=== PATIENT | female | born 1935 | race Caucasian/White ===

== ENCOUNTER 2017-06-25 06:59 | Day surgery (SDC) | payer MEDICARE, OTHER ==
[~2017-06-25] VITALS: Ht 160 cm; Wt 93.1 kg
[~2017-06-25 06:59] MED LIST: COD LIVER OIL1 EACH PO; DILT120 PO; LOSA25 PO; LOSA50 PO; Mirapex0.5 MG PO; NYSTRITC TOP; Omeprazole20 M1; Omeprazole20 M1 PO; PRAM.5 PO; PREMARIN VAG; TOLT2 PO; VITA25000 PO; VITAMIN D32000 UNIT PO; Vesicare10 MG PO
[2017-06-25] MEDS ORDERED: CLOP75 PO (07:55)
[2017-06-25] MEDS ORDERED: ASPI81CH PO (07:56)
[2017-10-04] MEDS ORDERED: BENZ100A PO (00:24)
== END 2017-06-25 09:13 | disposition home or self-care (01) ==
LOC: ORSCSDS 06:59
PROVIDERS: Ophthalmology
PROC: 08RK3JZ Replacement of Left Lens with Synthetic Substitute, Percutaneous Approach (ICD-10-PCS; principal; 2017-06-25 08:30)
DX: H25.12 Age-related nuclear cataract, left eye (principal); I10 Essential (primary) hypertension; J44.9 Chronic obstructive pulmonary disease, unspecified; J45.909 Unspecified asthma, uncomplicated; E66.01 Morbid (severe) obesity due to excess calories; Z68.36 Body mass index [BMI] 36.0-36.9, adult; F17.210 Nicotine dependence, cigarettes, uncomplicated; Z79.899 Other long term (current) drug therapy
CPT/HCPCS: J2250; J3301; J7040; V2632

== ENCOUNTER → 2017-07-17 | Outpatient (CLI) | payer MEDICARE, OTHER ==
[~2017-07-17] MED LIST changes: +ASPI81CH PO; +BENZ100A PO; +CLOP75 PO
== END ==
LOC: LAB 13:43
DX: N39.46 Mixed incontinence (principal)
CPT/HCPCS: 87086

== ENCOUNTER → 2017-09-18 | Outpatient (CLI) | payer MEDICARE, OTHER ==
[~2017-09-18] MED LIST changes: -BENZ100A PO
== END ==
LOC: PLD 13:50 → LAB SHORT 13:50
DX: L72.3 Sebaceous cyst (principal)
CPT/HCPCS: 88304

== ENCOUNTER → 2020-07-24 | Outpatient (CLI) | payer MEDICARE, OTHER ==
[~2020-07-24] MED LIST changes: +BENZ100A PO
[2020-07-24 16:47] LABS: BASOPHILS ABSOLUTE AUTO 0.04 K/mm3 (0.00-0.23); BASOPHILS PERCENT AUTO 1 % (0-2); EOSINOPHILS ABSOLUTE AUTO 0.17 K/mm3 (0.00-0.68); EOSINOPHILS PERCENT AUTO 2 % (0-6); Hematocrit 36.2 % (33.0-51.0); Hemoglobin 11.2 g/dL (11.5-16.0); IMMATURE GRAN ABSOLUTE AUTO 0.02 K/mm3 (0.00-0.10); IMMATURE GRAN PERCENT AUTO 0 % (0-1); LYMPHOCYTES ABSOLUTE AUTO 1.92 K/mm3 (0.84-5.20); LYMPHOCYTES PERCENT AUTO 25 % (21-46); MONOCYTES ABSOLUTE AUTO 0.63 K/mm3 (0.16-1.47); MONOCYTES PERCENT AUTO 8 % (4-13); Mean Corpuscular HGB 28.9 pg (26.0-34.0); Mean Corpuscular HGB Conc 30.9 g/dL (31.5-36.5); Mean Corpuscular Volume 94 fL (80-100); Mean Platelet Volume 9.8 fL (9.1-12.4); NEUTROPHILS ABSOLUTE AUTO 4.87 K/mm3 (1.96-9.15); NEUTROPHILS PERCENT AUTO 64 % (41-73); Platelet Count 286 K/mm3 (150-400); Red Blood Cell Count 3.87 M/mm3 (3.80-5.20); White Blood Cell Count 7.65 K/mm3 (4.00-11.30)
[2020-07-24 17:46] LABS: Bun/Creatinine Ratio 15.5 (12.0-20.0); Creatinine, Blood 1.1 mg/dL (0.40-1.00); Potassium, Blood 4.2 mmol/L (3.5-5.5)
== END | disposition home or self-care (01) ==
LOC: LAB SHORT 16:42 → PLD 16:42
PROVIDERS: Family Medicine
DX: I10 Essential (primary) hypertension (principal)
CPT/HCPCS: 80048; 83880; 85025

== ENCOUNTER 2020-10-21 13:37 | Emergency (ER) | payer MEDICARE, OTHER ==
[~2020-10-21] VITALS: Ht 162.6 cm; Wt 96.2 kg
== END 2020-10-21 15:57 | disposition home or self-care (01) ==
LOC: ER 13:37
DX: S81.812A Laceration without foreign body, left lower leg, initial encounter (principal); J44.9 Chronic obstructive pulmonary disease, unspecified; M79.662 Pain in left lower leg; Z88.2 Allergy status to sulfonamides; Z88.1 Allergy status to other antibiotic agents; Z88.8 Allergy status to other drugs, medicaments and biological substances; Z79.899 Other long term (current) drug therapy; Z87.891 Personal history of nicotine dependence; W45.8XXA Other foreign body or object entering through skin, initial encounter
CPT/HCPCS: 71046; 80053; 82550; 84484; 85025; 85379; 85651; 93971; 99284-25

== ENCOUNTER → 2022-04-23 | Outpatient (CLI) | payer MEDICARE, OTHER | LOC: LAB SHORT 12:05 → PLD 12:05 | DX: L57.0 Actinic keratosis (principal) | CPT/HCPCS: 88305 ==

== ENCOUNTER → 2022-04-30 | Outpatient (CLI) | payer MEDICARE, OTHER | LOC: LAB SHORT 12:47 → PLD 12:47 | DX: D48.5 Neoplasm of uncertain behavior of skin (principal) | CPT/HCPCS: 88305 ==

== ENCOUNTER → 2022-11-13 | Outpatient (CLI) | payer MEDICARE, OTHER | END | disposition home or self-care (01) | LOC: LAB 12:40 → LAB SHORT 12:40 | DX: L01.01 Non-bullous impetigo (principal) | CPT/HCPCS: 87070; 87077; 87186; 87205 ==

== ENCOUNTER → 2023-03-27 | Outpatient (CLI) | payer MEDICARE, OTHER ==
[2023-03-27 16:57] LABS: Protein, Urine Quantitative 7.9 mg/dL (0.0-11.9)
[2023-03-27 17:04] LABS: Microalbumin, Urine Quant. <5.000 mg/L (0.000-20.000)
== END ==
LOC: LAB 07:30 → LAB SHORT 07:30
PROVIDERS: Internal Medicine Nephrology
DX: N18.30 Chronic kidney disease, stage 3 unspecified (principal); D63.1 Anemia in chronic kidney disease; D52.8 Other folate deficiency anemias; D50.9 Iron deficiency anemia, unspecified; E55.9 Vitamin D deficiency, unspecified; N25.81 Secondary hyperparathyroidism of renal origin; E78.00 Pure hypercholesterolemia, unspecified; R76.9 Abnormal immunological finding in serum, unspecified; R94.5 Abnormal results of liver function studies; R94.6 Abnormal results of thyroid function studies; D51.8 Other vitamin B12 deficiency anemias
CPT/HCPCS: 81050; 82043; 82570; 84156

== ENCOUNTER 2023-11-27 05:55 | Inpatient (IN) | payer MEDICARE, OTHER ==
[~2023-11-27] VITALS: Ht 162.6 cm; Wt 100.7 kg
[2023-11-27] VITALS (7 sets, daily range): BP systolic 95–164; BP diastolic 59–140
[~2023-11-27 05:55] MED LIST changes: +PRAM.125 PO
[2023-11-27] MEDS ORDERED: Diltiazem HCl 5 MG / ML 5ML Vial IV ONE (06:15)
[2023-11-27 06:26] LABS: BASOPHILS ABSOLUTE AUTO 0.05 K/mm3 (0.00-0.23); BASOPHILS PERCENT AUTO 1 % (0-2); EOSINOPHILS ABSOLUTE AUTO 0.42 K/mm3 (0.00-0.68); EOSINOPHILS PERCENT AUTO 5 % (0-6); Hematocrit 40.9 % (33.0-51.0); Hemoglobin 13.4 g/dL (11.5-16.0); IMMATURE GRAN ABSOLUTE AUTO 0.02 K/mm3 (0.00-0.10); IMMATURE GRAN PERCENT AUTO 0 % (0-1); LYMPHOCYTES ABSOLUTE AUTO 3.53 K/mm3 (0.84-5.20); LYMPHOCYTES PERCENT AUTO 39 % (21-46); MONOCYTES ABSOLUTE AUTO 1.03 K/mm3 (0.16-1.47); MONOCYTES PERCENT AUTO 11 % (4-13); Mean Corpuscular HGB 31.6 pg (26.0-34.0); Mean Corpuscular HGB Conc 32.8 g/dL (31.5-36.5); Mean Corpuscular Volume 97 fL (80-100); Mean Platelet Volume 9.5 fL (9.1-12.4); NEUTROPHILS ABSOLUTE AUTO 3.95 K/mm3 (1.96-9.15); NEUTROPHILS PERCENT AUTO 44 % (41-73); Platelet Count 284 K/mm3 (150-400); RDW Coefficient Variation 13.1 % (11.7-14.2); RDW Standard Deviation 46.4 fL (35.1-46.3); Red Blood Cell Count 4.24 M/mm3 (3.80-5.20)
[2023-11-27] MEDS ORDERED: CALASOOTHE 0.4113 GM TP (06:39)
[2023-11-27] MEDS ORDERED: ZOLOFT50 MG PO (06:39)
[2023-11-27] MEDS ORDERED: IRBESARTAN75 M3 PO (06:39)
[2023-11-27] MEDS ORDERED: NYSTOP15 GM TOP (06:39)
[2023-11-27] MEDS ORDERED: HYDCHL25 PO (06:40)
[2023-11-27] MEDS ORDERED: Lovastatin10 MG PO (06:40)
[2023-11-27] MEDS ORDERED: Metoprolol Tartrate 1 MG/ML 5 ML VIAL IV ONE ×2 (06:45→13:50)
[2023-11-27 06:54] LABS: Albumin, Blood 3.5 g/dL (3.4-5.0); Albumin/Globulin Ratio 0.7 (0.8-1.8); Bilirubin, Total 0.4 mg/dL (0.1-1.0); Calcium, Blood 9.9 mg/dL (8.5-10.1); Creatinine, Blood 1.21 mg/dL (0.40-1.00); Globulin, Blood 4.9 g/dL (2.2-4.0); Potassium, Blood 3.7 mmol/L (3.5-5.5); Total Protein, Blood 8.4 g/dL (6.4-8.2)
[2023-11-27 07:33] LABS: Influenza A, PCR NEGATIVE (NEGATIVE); Influenza B, PCR NEGATIVE (NEGATIVE); Resp Syncytial Virus, PCR NEGATIVE (NEGATIVE); SARS-Cov-2 (COVID-19) PCR, MMC NEGATIVE (NEGATIVE)
[2023-11-27] MEDS ORDERED: Furosemide 10 MG / ML 2ML Vial IV ONE (08:15)
[2023-11-27] MEDS ORDERED: Acetaminophen 325 MG TABLET PO PRN (08:25)
[2023-11-27] MEDS ORDERED: Ondansetron HCl 2 MG / ML 2ML Vial IV PRN (08:30)
[2023-11-27] MEDS ORDERED: Omeprazole 20 MG CapCR PO SCH (09:00)
[2023-11-27] MEDS ORDERED: Sertraline HCl 50 MG Tab PO SCH (09:00)
[2023-11-27] MEDS ORDERED: Docusate Sodium 100 MG Cap PO SCH (09:00)
[2023-11-27] MEDS ORDERED: Cholecalciferol 1000 Unit Tablet (=25MCG) PO SCH (09:00)
[2023-11-27] MEDS ORDERED: Bisacodyl 10 MG Supp PR PRN (09:00)
[2023-11-27] MEDS ORDERED: Furosemide 10 MG/ML 4ML Vial IV SCH (09:00)
[2023-11-27] MEDS ORDERED: Aspirin 81 MG Chew PO SCH (09:00)
[2023-11-27] MEDS ORDERED: Sennosides 8.6 MG Tab PO SCH (09:00)
[2023-11-27] MEDS ORDERED: Nystatin 100,000 Unit/GM CREAM 15 GM TOP SCH (09:00)
[2023-11-27] MEDS ORDERED: Magnesium Hydroxide Conc 10 ML UDC PO PRN (09:05)
[2023-11-27] MEDS ORDERED: TraMADol HCl 50 MG Tab PO PRN (13:15)
[2023-11-27] MEDS ORDERED: Metoprolol Tartrate 5 ML IV ONE (13:46)
[2023-11-27] MEDS ORDERED: Gabapentin 100 MG Cap PO SCH (14:00)
[2023-11-27] MEDS ORDERED: Amiodarone HCl 200 MG Tab PO SCH (16:00)
[2023-11-27] MEDS ORDERED: Atorvastatin 10 MG Tab PO SCH ×2 (21:00)
[2023-11-27] MEDS ORDERED: Pramipexole DI-HCL 0.25 MG Tab PO SCH (21:00)
[2023-11-28 03:55] VITALS: BP 118/67
[2023-11-28 05:25] LABS: BASOPHILS ABSOLUTE AUTO 0.07 K/mm3 (0.00-0.23); BASOPHILS PERCENT AUTO 1 % (0-2); EOSINOPHILS ABSOLUTE AUTO 0.36 K/mm3 (0.00-0.68); EOSINOPHILS PERCENT AUTO 6 % (0-6); Hematocrit 33.8 % (33.0-51.0); IMMATURE GRAN ABSOLUTE AUTO 0.01 K/mm3 (0.00-0.10); IMMATURE GRAN PERCENT AUTO 0 % (0-1); LYMPHOCYTES ABSOLUTE AUTO 1.76 K/mm3 (0.84-5.20); LYMPHOCYTES PERCENT AUTO 27 % (21-46); MONOCYTES ABSOLUTE AUTO 0.65 K/mm3 (0.16-1.47); MONOCYTES PERCENT AUTO 10 % (4-13); Mean Corpuscular HGB 31.4 pg (26.0-34.0); Mean Corpuscular HGB Conc 32.5 g/dL (31.5-36.5); Mean Corpuscular Volume 97 fL (80-100); Mean Platelet Volume 9.8 fL (9.1-12.4); NEUTROPHILS ABSOLUTE AUTO 3.64 K/mm3 (1.96-9.15); NEUTROPHILS PERCENT AUTO 56 % (41-73); Platelet Count 255 K/mm3 (150-400); RDW Standard Deviation 46.5 fL (35.1-46.3); White Blood Cell Count 6.49 K/mm3 (4.00-11.30)
[2023-11-28 05:48] LABS: Albumin, Blood 2.9 g/dL (3.4-5.0); Anion Gap 8 mmol/L (3-11); Blood Urea Nitrogen 39 mg/dL (8-24); Bun/Creatinine Ratio 26.2 (12.0-20.0); CO2, Blood 30 mmol/L (21-32); Calcium, Blood 8.9 mg/dL (8.5-10.1); Chloride, Blood 109 mmol/L (98-108); Creatinine, Blood 1.49 mg/dL (0.40-1.00); Glomerular Filtration Rate 34 (60-); Glucose, Blood 117 mg/dL (70-99); Phosphorus, Blood 4.1 mg/dL (2.5-4.9); Potassium, Blood 3.6 mmol/L (3.5-5.5); Sodium, Blood 143 mmol/L (136-145)
[2023-11-28 07:20] VITALS: BP 116/55
[2023-11-28] MEDS ORDERED: Enoxaparin 40 MG/0.4 ML SYR SC SCH (09:00)
[2023-11-28 11:50] VITALS: BP 126/61
[2023-11-28 15:14] VITALS: BP 130/69
[2023-11-28 19:56] VITALS: BP 121/50
[2023-11-28] MEDS ORDERED: Amiodarone HCl 200 MG Tab PO SCH (21:00)
[2023-11-28] MEDS ORDERED: Metoprolol Tartrate 25 MG Tab PO SCH (21:00)
[2023-11-29 00:04] VITALS: BP 124/79
[2023-11-29 03:55] VITALS: BP 116/65
[2023-11-29 04:31] LABS: Hematocrit 37.1 % (33.0-51.0)
[2023-11-29 04:51] LABS: Albumin, Blood 3.1 g/dL (3.4-5.0); Anion Gap 6 mmol/L (3-11); Blood Urea Nitrogen 41 mg/dL (8-24); Bun/Creatinine Ratio 27.2 (12.0-20.0); CO2, Blood 30 mmol/L (21-32); Calcium, Blood 8.8 mg/dL (8.5-10.1); Chloride, Blood 109 mmol/L (98-108); Creatinine, Blood 1.51 mg/dL (0.40-1.00); Glomerular Filtration Rate 33 (60-); Glucose, Blood 98 mg/dL (70-99); Magnesium, Blood 2.3 mg/dL (1.6-2.4); Phosphorus, Blood 4.2 mg/dL (2.5-4.9); Sodium, Blood 141 mmol/L (136-145)
[2023-11-29 07:22] VITALS: BP 137/54
[2023-11-29 11:19] VITALS: BP 117/54
[2023-11-29] MEDS ORDERED: BISA10S PR (11:31)
[2023-11-29] MEDS ORDERED: DOCU100 PO (11:32)
[2023-11-29] MEDS ORDERED: METO25 PO (11:33)
[2023-11-29] MEDS ORDERED: SENN187 PO (11:34)
[2023-11-29] MEDS ORDERED: FURO40 PO (11:35)
== END 2023-11-29 12:50 | disposition home or self-care (01) | DRG 291 ==
LOC: ER 05:55 → ERHOLD 08:28 → PCU 08:28
PROVIDERS: Emergency Medicine; ADMIT Internal Medicine
DX: I13.0 Hypertensive heart and chronic kidney disease with heart failure and stage 1 through stage 4 chronic kidney disease, or unspecified chronic kidney disease (principal); I50.31 Acute diastolic (congestive) heart failure; I47.10 Supraventricular tachycardia, unspecified; I48.0 Paroxysmal atrial fibrillation; Z66 Do not resuscitate; E78.5 Hyperlipidemia, unspecified; G25.81 Restless legs syndrome; M19.90 Unspecified osteoarthritis, unspecified site; J44.9 Chronic obstructive pulmonary disease, unspecified; N18.30 Chronic kidney disease, stage 3 unspecified; K59.09 Other constipation; R94.31 Abnormal electrocardiogram [ECG] [EKG]; Z79.82 Long term (current) use of aspirin; Z79.899 Other long term (current) drug therapy; Z95.3 Presence of xenogenic heart valve; Z86.19 Personal history of other infectious and parasitic diseases
CPT/HCPCS: 0241U; 36415; 71045; 80053; 80069; 83735; 83880; 84443; 84484; 85014; 85018; 85025; 93005; 93010; 93306; 94760; 96365-59; 96375-59; 99285-25; A9270; J0282; J1650; J1940; J7060

== ENCOUNTER 2023-12-21 23:12 | Emergency (ER) | payer MEDICARE, OTHER ==
[~2023-12-21] VITALS: Ht 167.6 cm; Wt 90.7 kg
[~2023-12-21 23:12] MED LIST changes: +BISA10S PR; +CALASOOTHE 0.4113 GM TP; +DOCU100 PO; +FURO40 PO; +HYDCHL25 PO; +IRBESARTAN75 M3 PO; +Lovastatin10 MG PO; +METO25 PO; +NYSTOP15 GM TOP; +SENN187 PO; +ZOLOFT50 MG PO
[2023-12-22 00:06] LABS: BASOPHILS ABSOLUTE AUTO 0.04 K/mm3 (0.00-0.23); BASOPHILS PERCENT AUTO 1 % (0-2); EOSINOPHILS ABSOLUTE AUTO 0.71 K/mm3 (0.00-0.68); EOSINOPHILS PERCENT AUTO 9 % (0-6); Hematocrit 36.6 % (33.0-51.0); Hemoglobin 11.7 g/dL (11.5-16.0); IMMATURE GRAN ABSOLUTE AUTO 0.02 K/mm3 (0.00-0.10); IMMATURE GRAN PERCENT AUTO 0 % (0-1); LYMPHOCYTES ABSOLUTE AUTO 2.09 K/mm3 (0.84-5.20); LYMPHOCYTES PERCENT AUTO 26 % (21-46); MONOCYTES ABSOLUTE AUTO 0.64 K/mm3 (0.16-1.47); MONOCYTES PERCENT AUTO 8 % (4-13); Mean Corpuscular HGB 30.9 pg (26.0-34.0); Mean Corpuscular Volume 97 fL (80-100); Mean Platelet Volume 9.3 fL (9.1-12.4); NEUTROPHILS ABSOLUTE AUTO 4.45 K/mm3 (1.96-9.15); NEUTROPHILS PERCENT AUTO 56 % (41-73); Platelet Count 297 K/mm3 (150-400); RDW Coefficient Variation 12.4 % (11.7-14.2); RDW Standard Deviation 43.5 fL (35.1-46.3); Red Blood Cell Count 3.79 M/mm3 (3.80-5.20); White Blood Cell Count 7.95 K/mm3 (4.00-11.30)
[2023-12-22 00:18] LABS: Albumin/Globulin Ratio 0.7 (0.8-1.8); Bilirubin, Total 0.3 mg/dL (0.1-1.0); Bun/Creatinine Ratio 12.1 (12.0-20.0); Calcium, Blood 8.3 mg/dL (8.5-10.1); Creatinine, Blood 1.07 mg/dL (0.40-1.00); Globulin, Blood 4.3 g/dL (2.2-4.0); Potassium, Blood 4.1 mmol/L (3.5-5.5); Total Protein, Blood 7.3 g/dL (6.4-8.2)
[2023-12-22 00:29] LABS: Base Excess Venous 4.4 mmol/L; Bicarbonate Venous 27.5 mmol/L (24.0-30.0); PCO2 Venous 45.6 mmHg (38-42); pH Blood Venous 7.41 (7.34-7.37)
[2023-12-22 00:44] LABS: Influenza A, PCR NEGATIVE (NEGATIVE); Influenza B, PCR NEGATIVE (NEGATIVE); Resp Syncytial Virus, PCR NEGATIVE (NEGATIVE); SARS-Cov-2 (COVID-19) PCR, MMC NEGATIVE (NEGATIVE)
[2023-12-22 01:30] VITALS: BP 126/52
== END 2023-12-22 04:34 | disposition home or self-care (01) ==
LOC: ER 23:12
PROVIDERS: Emergency Medicine
DX: R06.02 Shortness of breath (principal); I10 Essential (primary) hypertension; J44.9 Chronic obstructive pulmonary disease, unspecified; E78.5 Hyperlipidemia, unspecified; Z79.899 Other long term (current) drug therapy; Z79.82 Long term (current) use of aspirin; Z88.2 Allergy status to sulfonamides; Z88.1 Allergy status to other antibiotic agents; Z88.8 Allergy status to other drugs, medicaments and biological substances
CPT/HCPCS: 0241U; 71045; 80053; 82803; 83880; 84484; 85025; 93005; 93010

== ENCOUNTER 2023-12-24 20:24 | Inpatient (IN) | payer MEDICARE, OTHER ==
[~2023-12-24] VITALS: Ht 162.6 cm; Wt 90.7 kg
[~2023-12-24 20:24] MED LIST changes: +CALASOOTHE 0.4113 GM TOP; -CALASOOTHE 0.4113 GM TP; +OMEP20ER PO; -Omeprazole20 M1; -PRAM.125 PO; +PRAMIPEXOLE DIHY1 MG PO; +THERA-D2000 UNIT PO; -VITAMIN D32000 UNIT PO
[2023-12-24 21:02] LABS: BASOPHILS ABSOLUTE AUTO 0.05 K/mm3 (0.00-0.23); BASOPHILS PERCENT AUTO 0 % (0-2); EOSINOPHILS ABSOLUTE AUTO 0.32 K/mm3 (0.00-0.68); EOSINOPHILS PERCENT AUTO 3 % (0-6); Hematocrit 38.3 % (33.0-51.0); Hemoglobin 12.6 g/dL (11.5-16.0); IMMATURE GRAN ABSOLUTE AUTO 0.04 K/mm3 (0.00-0.10); IMMATURE GRAN PERCENT AUTO 0 % (0-1); LYMPHOCYTES ABSOLUTE AUTO 1.68 K/mm3 (0.84-5.20); LYMPHOCYTES PERCENT AUTO 14 % (21-46); MONOCYTES ABSOLUTE AUTO 0.87 K/mm3 (0.16-1.47); MONOCYTES PERCENT AUTO 7 % (4-13); Mean Corpuscular HGB 31.5 pg (26.0-34.0); Mean Corpuscular HGB Conc 32.9 g/dL (31.5-36.5); Mean Corpuscular Volume 96 fL (80-100); Mean Platelet Volume 9.5 fL (9.1-12.4); NEUTROPHILS ABSOLUTE AUTO 8.77 K/mm3 (1.96-9.15); NEUTROPHILS PERCENT AUTO 75 % (41-73); Platelet Count 292 K/mm3 (150-400); RDW Coefficient Variation 12.3 % (11.7-14.2); RDW Standard Deviation 42.9 fL (35.1-46.3); White Blood Cell Count 11.73 K/mm3 (4.00-11.30)
[2023-12-24 21:25] LABS: Albumin, Blood 3.2 g/dL (3.4-5.0); Albumin/Globulin Ratio 0.7 (0.8-1.8); Bilirubin, Total 0.5 mg/dL (0.1-1.0); Bun/Creatinine Ratio 12.9 (12.0-20.0); Calcium, Blood 8.7 mg/dL (8.5-10.1); Creatinine, Blood 1.01 mg/dL (0.40-1.00); Globulin, Blood 4.9 g/dL (2.2-4.0); Potassium, Blood 4.6 mmol/L (3.5-5.5); Total Protein, Blood 8.1 g/dL (6.4-8.2)
[2023-12-24] MEDS ORDERED: Furosemide 10 MG/ML 10ML Vial IV ONE (21:45)
[2023-12-24] MEDS ORDERED: Ondansetron HCl 2 MG / ML 2ML Vial IV PRN (22:10)
[2023-12-24 22:48] LABS: Influenza A, PCR NEGATIVE (NEGATIVE); Influenza B, PCR NEGATIVE (NEGATIVE); Resp Syncytial Virus, PCR NEGATIVE (NEGATIVE)
[2023-12-24] MEDS ORDERED: Enoxaparin 40 MG/0.4 ML SYR SC SCH (23:00)
[2023-12-24 23:48] LABS: SARS-Cov-2 (COVID-19) PCR, MMC POSITIVE (NEGATIVE)
[2023-12-25] MEDS ORDERED: Remdesivir (EUA) 200 MG in NS 250 ML IV ONE (03:00)
[2023-12-25] MEDS ORDERED: Dexamethasone Sod Phos 10 MG/ML 1ML VIAL IV SCH (03:00)
--- NOTE | 2023-12-25 04:27 | NUR ---
SHIFT SUMMARY: Pt is admitted for acute on chronic CHF and is a DNR. is alert and able to make needs known. ADLs have been 1p since coming to the floor about 2340. But did not get out of bed. Is on ISO for covid. Denies pain or discomfort. Rodrigo reports sinus in the 80s with PVCs. has stated that she does not have covid and wants a 2nd opinion. Also stated that she was thinking about going AMA in the AM and going to the [facility] for treatment. When offered treatment for covid and breathing she declined and stating that she does not have covid.
[2023-12-25 05:40] LABS: Albumin, Blood 3.2 g/dL (3.4-5.0); Albumin/Globulin Ratio 0.7 (0.8-1.8); Bilirubin, Total 0.7 mg/dL (0.1-1.0); Bun/Creatinine Ratio 13.6 (12.0-20.0); Calcium, Blood 8.6 mg/dL (8.5-10.1); Creatinine, Blood 1.03 mg/dL (0.40-1.00); Globulin, Blood 4.8 g/dL (2.2-4.0)
[2023-12-25 06:03] VITALS: BP 132/35
[2023-12-25] MEDS ORDERED: Bisacodyl 10 MG Supp PR PRN (06:25)
[2023-12-25 07:15] LABS: BASOPHILS ABSOLUTE AUTO 0.03 K/mm3 (0.00-0.23); BASOPHILS PERCENT AUTO 0 % (0-2); EOSINOPHILS ABSOLUTE AUTO 0.08 K/mm3 (0.00-0.68); EOSINOPHILS PERCENT AUTO 1 % (0-6); Hemoglobin 12.8 g/dL (11.5-16.0); IMMATURE GRAN ABSOLUTE AUTO 0.03 K/mm3 (0.00-0.10); IMMATURE GRAN PERCENT AUTO 0 % (0-1); LYMPHOCYTES ABSOLUTE AUTO 1.49 K/mm3 (0.84-5.20); LYMPHOCYTES PERCENT AUTO 15 % (21-46); MONOCYTES ABSOLUTE AUTO 0.88 K/mm3 (0.16-1.47); MONOCYTES PERCENT AUTO 9 % (4-13); Mean Corpuscular HGB 30.7 pg (26.0-34.0); Mean Corpuscular Volume 96 fL (80-100); Mean Platelet Volume 9.5 fL (9.1-12.4); NEUTROPHILS ABSOLUTE AUTO 7.67 K/mm3 (1.96-9.15); NEUTROPHILS PERCENT AUTO 75 % (41-73); Platelet Count 287 K/mm3 (150-400); RDW Coefficient Variation 12.4 % (11.7-14.2); RDW Standard Deviation 43.6 fL (35.1-46.3); Red Blood Cell Count 4.17 M/mm3 (3.80-5.20); White Blood Cell Count 10.18 K/mm3 (4.00-11.30)
[2023-12-25 07:21] VITALS: BP 138/58
[2023-12-25] MEDS ORDERED: Docusate Sodium 100 MG Cap PO SCH (09:00)
[2023-12-25] MEDS ORDERED: Metoprolol Tartrate 25 MG Tab PO SCH (09:00)
[2023-12-25] MEDS ORDERED: Sertraline HCl 50 MG Tab PO SCH (09:00)
[2023-12-25] MEDS ORDERED: Furosemide 10 MG/ML 4ML Vial IV SCH (09:00)
[2023-12-25] MEDS ORDERED: Aspirin 81 MG Chew PO SCH (09:00)
[2023-12-25] MEDS ORDERED: Misc. Topical TOP SCH (09:00)
[2023-12-25] MEDS ORDERED: Sennosides 8.6 MG Tab PO SCH (09:00)
[2023-12-25] MEDS ORDERED: PRED20 PO (14:02)
[2023-12-25] MEDS ORDERED: ALBU90OI INH (14:02)
--- NOTE | 2023-12-25 15:11 | NUR ---
PT DISCHARGED 1415 WITH DC INSTRUCTIONS, WHEELCHAIR OUT TO PRIVATE CAR, TRICIA WILL DRIVE PT HOME. PT WORE MASK IN [place] FOR COVID PROTOCOL. BELONGINGS SENT HOME INCLUDING FLIP PHONE. RX CALLED IN TO PHARMACY. THEY HAVE A FOLLOW UP APT IN ONE HOUR AND ARE HEADED THERE NOW.
[2023-12-25] MEDS ORDERED: Pramipexole DI-HCL 1 Mg Tab PO SCH (21:00)
[2023-12-26] MEDS ORDERED: Omeprazole 20 MG CapCR PO SCH (06:00)
[2023-12-26] MEDS ORDERED: Remdesivir (EUA) 100 MG in NS 250 ML IV SCH (12:00)
== END 2023-12-25 14:19 | disposition home or self-care (01) | DRG 177 ==
LOC: ER 20:24 → MEDS 22:06
PROVIDERS: Emergency Medicine; ADMIT Internal Medicine
PROC: XW033E5 Introduction of Remdesivir Anti-infective into Peripheral Vein, Percutaneous Approach, New Technology Group 5 (ICD-10-PCS; principal; 2023-12-24)
PROC: 3E0333Z Introduction of Anti-inflammatory into Peripheral Vein, Percutaneous Approach (ICD-10-PCS; 2023-12-24)
DX: U07.1 COVID-19 (principal); I50.33 Acute on chronic diastolic (congestive) heart failure; J12.82 Pneumonia due to coronavirus disease 2019; J44.0 Chronic obstructive pulmonary disease with (acute) lower respiratory infection; I10 Essential (primary) hypertension; M19.90 Unspecified osteoarthritis, unspecified site; M85.80 Other specified disorders of bone density and structure, unspecified site; E78.5 Hyperlipidemia, unspecified; I48.91 Unspecified atrial fibrillation; R09.02 Hypoxemia; Z88.1 Allergy status to other antibiotic agents; Z95.2 Presence of prosthetic heart valve; Z88.2 Allergy status to sulfonamides; Z88.8 Allergy status to other drugs, medicaments and biological substances; Z79.899 Other long term (current) drug therapy; Z79.82 Long term (current) use of aspirin; Z79.01 Long term (current) use of anticoagulants; Z98.890 Other specified postprocedural states; Z96.653 Presence of artificial knee joint, bilateral
CPT/HCPCS: 0241U; 36415; 71045; 80053; 82803; 83880; 84145; 84484; 85025; 93005; 93010; 96374; 99285-25; A9270; J0248; J1100; J1650; J1940; J7050

== ENCOUNTER 2024-05-26 09:20 | Emergency (ER) | payer MEDICARE, OTHER ==
[~2024-05-26] VITALS: Ht 152.4 cm; Wt 113.4 kg
[~2024-05-26 09:20] MED LIST changes: +ALBU90OI INH; +PRED20 PO
[2024-05-26] MEDS ORDERED: Ipratropium/Albuterol SulF 2.5-0.5MG/3 ML Amp INH ONE (10:05)
[2024-05-26 10:12] LABS: BASOPHILS ABSOLUTE AUTO 0.05 K/mm3 (0.00-0.23); BASOPHILS PERCENT AUTO 1 % (0-2); EOSINOPHILS ABSOLUTE AUTO 0.24 K/mm3 (0.00-0.68); EOSINOPHILS PERCENT AUTO 4 % (0-6); Hematocrit 40.9 % (33.0-51.0); Hemoglobin 13.3 g/dL (11.5-16.0); IMMATURE GRAN ABSOLUTE AUTO 0.01 K/mm3 (0.00-0.10); IMMATURE GRAN PERCENT AUTO 0 % (0-1); LYMPHOCYTES PERCENT AUTO 28 % (21-46); MONOCYTES ABSOLUTE AUTO 0.56 K/mm3 (0.16-1.47); MONOCYTES PERCENT AUTO 8 % (4-13); Mean Corpuscular HGB 31.1 pg (26.0-34.0); Mean Corpuscular HGB Conc 32.5 g/dL (31.5-36.5); Mean Corpuscular Volume 96 fL (80-100); NEUTROPHILS ABSOLUTE AUTO 3.98 K/mm3 (1.96-9.15); NEUTROPHILS PERCENT AUTO 59 % (41-73); Platelet Count 260 K/mm3 (150-400); RDW Coefficient Variation 13.4 % (11.7-14.2); RDW Standard Deviation 46.8 fL (35.1-46.3); Red Blood Cell Count 4.28 M/mm3 (3.80-5.20); White Blood Cell Count 6.74 K/mm3 (4.00-11.30)
[2024-05-26 10:26] LABS: Albumin, Blood 3.1 g/dL (3.4-5.0); Albumin/Globulin Ratio 0.7 (0.8-1.8); Bilirubin, Total 0.4 mg/dL (0.1-1.0); Bun/Creatinine Ratio 11.2 (12.0-20.0); Calcium, Blood 8.9 mg/dL (8.5-10.1); Creatinine, Blood 0.89 mg/dL (0.40-1.00); Globulin, Blood 4.4 g/dL (2.2-4.0); Magnesium, Blood 2.3 mg/dL (1.6-2.4); Potassium, Blood 3.9 mmol/L (3.5-5.5); Total Protein, Blood 7.5 g/dL (6.4-8.2)
[2024-05-26] MEDS ORDERED: Furosemide 10 MG/ML 4ML Vial IV ONE (11:15)
[2024-05-26] MEDS ORDERED: PredniSONE 20 MG Tab PO ONE (12:25)
[2024-05-26 13:00] VITALS: BP 120/60
[2024-05-26] MEDS ORDERED: FURO40 PO (13:11)
[2024-05-26] MEDS ORDERED: PRED20 PO (13:11)
[2024-05-26] MEDS ORDERED: IPRAT-ALBUT 0.5-3 ML INH (13:11)
== END 2024-05-26 13:23 | disposition home or self-care (01) ==
LOC: ER 09:20
PROVIDERS: Student in an Organized Health Care Education/Training Program
DX: I11.0 Hypertensive heart disease with heart failure (principal); I50.30 Unspecified diastolic (congestive) heart failure; J44.1 Chronic obstructive pulmonary disease with (acute) exacerbation; E78.5 Hyperlipidemia, unspecified; Z79.82 Long term (current) use of aspirin; Z79.52 Long term (current) use of systemic steroids; Z79.899 Other long term (current) drug therapy; Z88.2 Allergy status to sulfonamides; Z88.1 Allergy status to other antibiotic agents; Z88.8 Allergy status to other drugs, medicaments and biological substances
CPT/HCPCS: 71046; 80053; 83735; 83880; 84145; 84484; 85025; 93005; 93010; 94640; 94664; 96374; 99284-25; J1940; J7512

== ENCOUNTER 2024-07-26 15:19 | Emergency (ER) | payer MEDICARE, OTHER ==
[~2024-07-26] VITALS: Ht 162.6 cm; Wt 86.2 kg
[~2024-07-26 15:19] MED LIST changes: +IPRAT-ALBUT 0.5-3 ML INH
[2024-07-26 16:57] LABS: BASOPHILS ABSOLUTE AUTO 0.06 K/mm3 (0.00-0.23); BASOPHILS PERCENT AUTO 1 % (0-2); EOSINOPHILS ABSOLUTE AUTO 0.17 K/mm3 (0.00-0.68); EOSINOPHILS PERCENT AUTO 2 % (0-6); Hematocrit 40.4 % (33.0-51.0); Hemoglobin 13.4 g/dL (11.5-16.0); IMMATURE GRAN ABSOLUTE AUTO 0.01 K/mm3 (0.00-0.10); IMMATURE GRAN PERCENT AUTO 0 % (0-1); LYMPHOCYTES ABSOLUTE AUTO 2.28 K/mm3 (0.84-5.20); LYMPHOCYTES PERCENT AUTO 29 % (21-46); MONOCYTES ABSOLUTE AUTO 0.76 K/mm3 (0.16-1.47); MONOCYTES PERCENT AUTO 10 % (4-13); Mean Corpuscular HGB 31.2 pg (26.0-34.0); Mean Corpuscular HGB Conc 33.2 g/dL (31.5-36.5); Mean Corpuscular Volume 94 fL (80-100); Mean Platelet Volume 9.2 fL (9.1-12.4); NEUTROPHILS ABSOLUTE AUTO 4.59 K/mm3 (1.96-9.15); NEUTROPHILS PERCENT AUTO 58 % (41-73); Platelet Count 213 K/mm3 (150-400); RDW Coefficient Variation 13.5 % (11.7-14.2); White Blood Cell Count 7.87 K/mm3 (4.00-11.30)
[2024-07-26 17:18] LABS: Albumin, Blood 3.2 g/dL (3.4-5.0); Albumin/Globulin Ratio 0.8 (0.8-1.8); Bilirubin, Total 0.3 mg/dL (0.1-1.0); Bun/Creatinine Ratio 14.5 (12.0-20.0); Creatinine, Blood 0.9 mg/dL (0.40-1.00); Globulin, Blood 4.2 g/dL (2.2-4.0); Total Protein, Blood 7.4 g/dL (6.4-8.2)
[2024-07-26] MEDS ORDERED: Ipratropium/Albuterol SulF 2.5-0.5MG/3 ML Amp INH ONE (18:05)
[2024-07-26] MEDS ORDERED: MethylPREDNISolone Sod Succ 125 MG Vial IV ONE (18:05)
[2024-07-26 19:05] LABS: Influenza A, PCR NEGATIVE (NEGATIVE); Influenza B, PCR NEGATIVE (NEGATIVE); Resp Syncytial Virus, PCR NEGATIVE (NEGATIVE); SARS-Cov-2 (COVID-19) PCR, MMC NEGATIVE (NEGATIVE)
[2024-07-26 22:07] VITALS: BP 170/85
== END 2024-07-26 22:07 | disposition home or self-care (01) ==
LOC: ER 15:19
PROVIDERS: Student in an Organized Health Care Education/Training Program
DX: R06.02 Shortness of breath (principal); I50.30 Unspecified diastolic (congestive) heart failure; J44.9 Chronic obstructive pulmonary disease, unspecified; E78.5 Hyperlipidemia, unspecified; Z95.3 Presence of xenogenic heart valve; Z88.2 Allergy status to sulfonamides; Z88.1 Allergy status to other antibiotic agents; Z88.8 Allergy status to other drugs, medicaments and biological substances; Z79.82 Long term (current) use of aspirin; Z79.52 Long term (current) use of systemic steroids; Z79.899 Other long term (current) drug therapy
CPT/HCPCS: 0241U; 71046; 71260; 80053; 83880; 84484; 85025; 85379; 93005; 93010; 94640; 94664; 96374-59; 99285-25; J2919; Q9967

== ENCOUNTER 2024-09-28 12:22 | Emergency (ER) | payer MEDICARE ==
[~2024-09-28] VITALS: Ht 162.6 cm; Wt 94.8 kg
[2024-09-28] MEDS ORDERED: CALMOSEPTINE (12:48)
[2024-09-28] MEDS ORDERED: OMEP20ER PO (12:49)
[2024-09-28] MEDS ORDERED: FURO20 PO (12:49)
[2024-09-28] MEDS ORDERED: MIRALAX17 GM (12:49)
[2024-09-28] MEDS ORDERED: METO25ER PO (12:49)
[2024-09-28] MEDS ORDERED: PRAM.125 PO (12:50)
[2024-09-28] MEDS ORDERED: POTA10T PO (12:50)
[2024-09-28] MEDS ORDERED: ALBU90OI (12:50)
[2024-09-28 13:38] LABS: BASOPHILS ABSOLUTE AUTO 0.04 K/mm3 (0.00-0.23); BASOPHILS PERCENT AUTO 1 % (0-2); EOSINOPHILS ABSOLUTE AUTO 0.26 K/mm3 (0.00-0.68); EOSINOPHILS PERCENT AUTO 4 % (0-6); Hematocrit 38.5 % (33.0-51.0); Hemoglobin 12.4 g/dL (11.5-16.0); IMMATURE GRAN ABSOLUTE AUTO 0.01 K/mm3 (0.00-0.10); IMMATURE GRAN PERCENT AUTO 0 % (0-1); LYMPHOCYTES ABSOLUTE AUTO 2.19 K/mm3 (0.84-5.20); LYMPHOCYTES PERCENT AUTO 31 % (21-46); MONOCYTES ABSOLUTE AUTO 0.55 K/mm3 (0.16-1.47); MONOCYTES PERCENT AUTO 8 % (4-13); Mean Corpuscular HGB Conc 32.2 g/dL (31.5-36.5); Mean Corpuscular Volume 96 fL (80-100); NEUTROPHILS ABSOLUTE AUTO 4.13 K/mm3 (1.96-9.15); NEUTROPHILS PERCENT AUTO 58 % (41-73); Platelet Count 264 K/mm3 (150-400); RDW Coefficient Variation 12.8 % (11.7-14.2); RDW Standard Deviation 45.7 fL (35.1-46.3); White Blood Cell Count 7.18 K/mm3 (4.00-11.30)
[2024-09-28 13:58] LABS: Albumin, Blood 3.1 g/dL (3.4-5.0); Albumin/Globulin Ratio 0.8 (0.8-1.8); Bilirubin, Total 0.3 mg/dL (0.1-1.0); Bun/Creatinine Ratio 11.4 (12.0-20.0); Calcium, Blood 8.7 mg/dL (8.5-10.1); Creatinine, Blood 1.05 mg/dL (0.40-1.00); Globulin, Blood 4.1 g/dL (2.2-4.0); Potassium, Blood 4.2 mmol/L (3.5-5.5); Total Protein, Blood 7.2 g/dL (6.4-8.2)
[2024-09-28] MEDS ORDERED: Furosemide 10 MG / ML 2ML Vial IV ONE (14:20)
[2024-09-28 15:52] VITALS: BP 145/52
== END 2024-09-28 15:54 | disposition home or self-care (01) ==
LOC: ER 12:22
PROVIDERS: Emergency Medicine
DX: I50.33 Acute on chronic diastolic (congestive) heart failure (principal); J44.9 Chronic obstructive pulmonary disease, unspecified; E78.5 Hyperlipidemia, unspecified; I48.91 Unspecified atrial fibrillation; Z95.3 Presence of xenogenic heart valve; Z88.2 Allergy status to sulfonamides; Z88.1 Allergy status to other antibiotic agents; Z88.8 Allergy status to other drugs, medicaments and biological substances; Z79.82 Long term (current) use of aspirin; Z79.899 Other long term (current) drug therapy
CPT/HCPCS: 71045; 80053; 83880; 84484; 85025; 93005; 93010; 96374; 99285-25; J1938; J1940

== ENCOUNTER 2025-01-06 20:45 | Inpatient (IN) | payer MEDICARE, OTHER ==
[~2025-01-06] VITALS: Ht 162.6 cm; Wt 95.0 kg
[~2025-01-06 20:45] MED LIST changes: +ALBU90OI; +CALMOSEPTINE; +FURO20 PO; +METO25ER PO; +MIRALAX17 GM PO; +POTA10T PO; +PRAM.125 PO
[2025-01-06 21:02] LABS: BASOPHILS ABSOLUTE AUTO 0.07 K/mm3 (0.00-0.23); BASOPHILS PERCENT AUTO 1 % (0-2); EOSINOPHILS ABSOLUTE AUTO 0.30 K/mm3 (0.00-0.68); EOSINOPHILS PERCENT AUTO 4 % (0-6); Hematocrit 36.1 % (33.0-51.0); Hemoglobin 11.7 g/dL (11.5-16.0); IMMATURE GRAN ABSOLUTE AUTO 0.02 K/mm3 (0.00-0.10); IMMATURE GRAN PERCENT AUTO 0 % (0-1); LYMPHOCYTES ABSOLUTE AUTO 2.67 K/mm3 (0.84-5.20); LYMPHOCYTES PERCENT AUTO 34 % (21-46); MONOCYTES ABSOLUTE AUTO 0.64 K/mm3 (0.16-1.47); MONOCYTES PERCENT AUTO 8 % (4-13); Mean Corpuscular HGB Conc 32.4 g/dL (31.5-36.5); Mean Corpuscular Volume 93 fL (80-100); NEUTROPHILS ABSOLUTE AUTO 4.17 K/mm3 (1.96-9.15); NEUTROPHILS PERCENT AUTO 53 % (41-73); NRBC ABSOLUTE 0.00 K/mm3 (0.00-0.02); NRBC Auto 0.0 /100 WBC (0.0-0.2); Platelet Count 294 K/mm3 (150-400); RDW Coefficient Variation 13.3 % (11.7-14.2); RDW Standard Deviation 45.9 fL (35.1-46.3)
[2025-01-06 21:21] LABS: Anion Gap 7.0 mmol/L (3-11); Blood Urea Nitrogen 23.0 mg/dL (8-24); CO2, Blood 29.0 mmol/L (21-32); Calcium, Blood 8.6 mg/dL (8.5-10.1); Chloride, Blood 106.0 mmol/L (98-108); Creatinine, Blood 1.06 mg/dL (0.40-1.00); Glucose, Blood 101.0 mg/dL (70-99); Potassium, Blood 4.1 mmol/L (3.5-5.5); Sodium, Blood 138.0 mmol/L (136-145)
[2025-01-06 23:03] LABS: Influenza A, PCR NEGATIVE (NEGATIVE); Influenza B, PCR NEGATIVE (NEGATIVE); Resp Syncytial Virus, PCR NEGATIVE (NEGATIVE); SARS-Cov-2 (COVID-19) PCR, MMC NEGATIVE (NEGATIVE)
[2025-01-07] MEDS ORDERED: Ondansetron HCl 2 MG / ML 2ML Vial IV PRN (00:40)
[2025-01-07 02:02] LABS: Alanine Aminotransfer (ALT/SGP 17.0 U/L (12-78); Albumin, Blood 3.0 g/dL (3.4-5.0); Albumin/Globulin Ratio 0.7 (0.8-1.8); Aspartate Aminotrans (AST/SGOT 21.0 U/L (12-37); Bilirubin, Direct 0.2 mg/dL (0.0-0.3); Bilirubin, Indirect 0.3 mg/dL (0.1-0.7); Bilirubin, Total 0.5 mg/dL (0.1-1.0); Globulin, Blood 4.5 g/dL (2.2-4.0); Total Protein, Blood 7.5 g/dL (6.4-8.2)
[2025-01-07 06:04] VITALS: BP 162/49
[2025-01-07 06:06] LABS: Alanine Aminotransfer (ALT/SGP 20.0 U/L (12-78); Albumin, Blood 3.0 g/dL (3.4-5.0); Albumin/Globulin Ratio 0.7 (0.8-1.8); Anion Gap 7.0 mmol/L (3-11); Aspartate Aminotrans (AST/SGOT 47.0 U/L (12-37); Bilirubin, Total 0.6 mg/dL (0.1-1.0); Blood Urea Nitrogen 23.0 mg/dL (8-24); CO2, Blood 31.0 mmol/L (21-32); Calcium, Blood 8.3 mg/dL (8.5-10.1); Chloride, Blood 103.0 mmol/L (98-108); Creatinine, Blood 1.0 mg/dL (0.40-1.00); Globulin, Blood 4.5 g/dL (2.2-4.0); Glucose, Blood 99.0 mg/dL (70-99); Potassium, Blood 4.8 mmol/L (3.5-5.5); Sodium, Blood 136.0 mmol/L (136-145); Total Protein, Blood 7.5 g/dL (6.4-8.2)
[2025-01-07] MEDS ORDERED: Menthol/Zinc Oxide Ointment 1 APPLIC/113 GM Tube TOP PRN (06:10)
[2025-01-07] MEDS ORDERED: Polyethylene Glycol 3350 17 gm PO PRN (06:10)
[2025-01-07] MEDS ORDERED: Albuterol HFA200 ACT/6.7 GM INH INH PRN (06:35)
--- NOTE | 2025-01-07 07:46 | NUR ---
PT ALERT AND ORIENTED. ROSEBUD. SBA AMBULATING TO THE BATHROOM WITH PERSONAL WALKER. ON ROOM AIR. ORIENTED TO ROOM. CALL BURNHAM WITHIN REACH. +2 EDEMA BLE.
[2025-01-07 07:50] VITALS: BP 171/68
[2025-01-07 08:48] LABS: BASOPHILS ABSOLUTE AUTO 0.04 K/mm3 (0.00-0.23); BASOPHILS PERCENT AUTO 1 % (0-2); EOSINOPHILS ABSOLUTE AUTO 0.32 K/mm3 (0.00-0.68); EOSINOPHILS PERCENT AUTO 4 % (0-6); Hematocrit 37.2 % (33.0-51.0); Hemoglobin 12.0 g/dL (11.5-16.0); IMMATURE GRAN ABSOLUTE AUTO 0.01 K/mm3 (0.00-0.10); IMMATURE GRAN PERCENT AUTO 0 % (0-1); LYMPHOCYTES ABSOLUTE AUTO 1.71 K/mm3 (0.84-5.20); LYMPHOCYTES PERCENT AUTO 23 % (21-46); MONOCYTES ABSOLUTE AUTO 0.67 K/mm3 (0.16-1.47); MONOCYTES PERCENT AUTO 9 % (4-13); Mean Corpuscular HGB Conc 32.3 g/dL (31.5-36.5); Mean Corpuscular Volume 95 fL (80-100); NEUTROPHILS ABSOLUTE AUTO 4.67 K/mm3 (1.96-9.15); NEUTROPHILS PERCENT AUTO 63 % (41-73); NRBC ABSOLUTE 0.00 K/mm3 (0.00-0.02); NRBC Auto 0.0 /100 WBC (0.0-0.2); Platelet Count 257 K/mm3 (150-400); RDW Coefficient Variation 13.2 % (11.7-14.2); RDW Standard Deviation 45.9 fL (35.1-46.3)
[2025-01-07] MEDS ORDERED: Potassium Chloride 10 Meq Tablet SA PO SCH (09:00)
[2025-01-07] MEDS ORDERED: Enoxaparin 40 MG/0.4 ML SYR SC SCH (09:00)
[2025-01-07 10:33] VITALS: BP 134/67
[2025-01-07] MEDS ORDERED: Lovastatin10 MG PO (10:41)
[2025-01-07] MEDS ORDERED: SERT50 PO (10:41)
[2025-01-07] MEDS ORDERED: ALBU2.5V5 INH (10:42)
[2025-01-07] MEDS ORDERED: Polyethylene Glycol 3350 17 gm PO SCH (13:00)
[2025-01-07 16:15] VITALS: BP 145/60
--- NOTE | 2025-01-07 16:18 | NUR ---
SHIFT SUMMARY MS LOUISE IS ORIENTATED X 4, SOME FORGETFULNESS. HER MAIN COMPLAINT TODAY HAS BEEN THAT SHE USES AN ENEMA AT HOME TO "CLEAR HERSELF OUT" AND WOULD LIKE ONE HERE. SHE HAS BEEN UP TO THE TOILET MANY TIMES, SMALL FREQUENT UOP AND TWO BMS SO FAR THIS SHIFT. SHE WAS GIVEN BISOCODYL AND MIRILAX WELL COLACE THIS MORNING. SHE WAS EDUCATED ON BOWEL HEALTH. 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 SHE WALKS WITH STEADY GAIT WITH A WALKER TO THE BATHROOM. SHE HAS BEEN UING THE CALL LIGHT APPROPRIATELY BEFORE GOING TO THE BATHROOM. SHE IS ON TELEMETRY IN SR WITH 1ST DEGREE AVB. NO CALLS FROM BE[employer] WIRE TAPER. NO C/O PAIN. BED LOW, CALL LIGHT IN REACH.
[2025-01-07 19:43] VITALS: BP 124/47
[2025-01-08 01:08] VITALS: BP 142/52
[2025-01-08 03:17] VITALS: BP 141/45
--- NOTE | 2025-01-08 05:35 | NUR ---
SHIFT SUMMARY PT A&Ox4 AND PLEASANT. FORGETFUL AT TIMES. NO C/O PAIN. UP T/O THE NIGHT TO BSC WITH SMALL VOIDS EACH TIME. CALLS APPROPRIATELY. VERY FATIGUED WITH ACTIVITY BUT PT REPORTS THAT IS HER BASLINE. VSS. WEIGHT THIS MORNING WAS 95kg. BED ALARM ON. BED IN LOWEST POSITION AND CALL LIGHT IN REACH.
[2025-01-08 05:51] LABS: BASOPHILS ABSOLUTE AUTO 0.05 K/mm3 (0.00-0.23); BASOPHILS PERCENT AUTO 1 % (0-2); EOSINOPHILS ABSOLUTE AUTO 0.31 K/mm3 (0.00-0.68); EOSINOPHILS PERCENT AUTO 5 % (0-6); Hematocrit 37.4 % (33.0-51.0); Hemoglobin 12.5 g/dL (11.5-16.0); IMMATURE GRAN ABSOLUTE AUTO 0.01 K/mm3 (0.00-0.10); IMMATURE GRAN PERCENT AUTO 0 % (0-1); LYMPHOCYTES ABSOLUTE AUTO 1.75 K/mm3 (0.84-5.20); LYMPHOCYTES PERCENT AUTO 26 % (21-46); MONOCYTES ABSOLUTE AUTO 0.68 K/mm3 (0.16-1.47); MONOCYTES PERCENT AUTO 10 % (4-13); Mean Corpuscular HGB Conc 33.4 g/dL (31.5-36.5); Mean Corpuscular Volume 94 fL (80-100); NEUTROPHILS ABSOLUTE AUTO 3.83 K/mm3 (1.96-9.15); NEUTROPHILS PERCENT AUTO 58 % (41-73); NRBC ABSOLUTE 0.00 K/mm3 (0.00-0.02); NRBC Auto 0.0 /100 WBC (0.0-0.2); Platelet Count 254 K/mm3 (150-400); RDW Coefficient Variation 13.1 % (11.7-14.2); RDW Standard Deviation 44.6 fL (35.1-46.3)
[2025-01-08 06:18] LABS: Anion Gap 6.0 mmol/L (3-11); Blood Urea Nitrogen 24.0 mg/dL (8-24); CO2, Blood 31.0 mmol/L (21-32); Calcium, Blood 8.3 mg/dL (8.5-10.1); Chloride, Blood 103.0 mmol/L (98-108); Creatinine, Blood 1.22 mg/dL (0.40-1.00); Glucose, Blood 97.0 mg/dL (70-99); Potassium, Blood 3.6 mmol/L (3.5-5.5); Sodium, Blood 136.0 mmol/L (136-145)
[2025-01-08 07:07] VITALS: BP 140/53
[2025-01-08 10:19] VITALS: BP 124/50
[2025-01-08] MEDS ORDERED: JARDIANCE10 MG PO (12:15)
--- NOTE | 2025-01-08 14:19 | NUR ---
DISCHARGE NOTE MS LOUISE SAID SHE FELT READY TO GO HOME. SHE HAS FATIGUE AND SOB THAT SHE SAID IS HER BASELINE FROM LYMES DISEASE, BUT SAID THAT SHE FELT BETTER TODAY THAN SHE HAS FOR DAYS. UP TO THE BATHROOM WITH 4W WALKER AND STAND BY ASSISTANCE. SHE VERBALISED UNDERSTANDING OF WRITTEN AND VERBAL DISCHARGE INSRUCTIONS AND READ BACK INSTRUCTIONS TO ME TO ENSURE COMPREHENSION. PIV REMOVED BY ZOFIA SHARIF AND PT ESCORTED TO MEET HER FRIEND IN HER VEHICLE VIA W/C WITH RN AT 1325HRS. NO NEW QUESTIONS OR CONCERNS PRIOR TO DISCHARGE.
--- NOTE | 2025-01-08 15:13 | NUR ---
1240 pt readying for discharge. pulled iv intact at 1240. removed tele. pend aide to wheel pt to door.
== END 2025-01-08 13:25 | disposition home or self-care (01) | DRG 292 ==
LOC: ER 20:45 → ERHOLD 22:15 → MEDS 22:15
PROVIDERS: Emergency Medicine; Internal Medicine; ADMIT Internal Medicine
DX: I50.33 Acute on chronic diastolic (congestive) heart failure (principal); I48.20 Chronic atrial fibrillation, unspecified; M19.90 Unspecified osteoarthritis, unspecified site; E78.5 Hyperlipidemia, unspecified; J44.9 Chronic obstructive pulmonary disease, unspecified; I44.0 Atrioventricular block, first degree; G30.9 Alzheimer's disease, unspecified; K21.9 Gastro-esophageal reflux disease without esophagitis; F02.80 Dementia in other diseases classified elsewhere, unspecified severity, without behavioral disturbance, psychotic disturbance, mood disturbance, and anxiety; Z88.2 Allergy status to sulfonamides; Z88.5 Allergy status to narcotic agent; Z88.8 Allergy status to other drugs, medicaments and biological substances; Z79.82 Long term (current) use of aspirin; Z79.899 Other long term (current) drug therapy; Z79.51 Long term (current) use of inhaled steroids; Z95.818 Presence of other cardiac implants and grafts; Z89.612 Acquired absence of left leg above knee; Z89.611 Acquired absence of right leg above knee; Z98.41 Cataract extraction status, right eye; Z98.42 Cataract extraction status, left eye; Z86.16 Personal history of COVID-19; Z99.81 Dependence on supplemental oxygen
CPT/HCPCS: 36415; 71045; 80048; 80053; 80076; 83880; 84484; 85025; 87637; 93005; 93010; 96374; 99285-25; A9270; J1650; J1938

== ENCOUNTER 2025-01-16 01:48 | Emergency (ER) | payer MEDICARE, OTHER ==
[~2025-01-16] VITALS: Ht 162.6 cm; Wt 90.7 kg
[~2025-01-16 01:48] MED LIST changes: +ALBU2.5V5 INH; +JARDIANCE10 MG PO; +SERT50 PO
[2025-01-16] MEDS ORDERED: Ipratropium/Albuterol SulF 2.5-0.5MG/3 ML Amp INH ONE (02:05)
[2025-01-16 02:44] LABS: Magnesium, Blood 2.3 mg/dL (1.6-2.4)
[2025-01-16 02:45] LABS: Alanine Aminotransfer (ALT/SGP 19.0 U/L (12-78); Albumin, Blood 3.1 g/dL (3.4-5.0); Albumin/Globulin Ratio 0.7 (0.8-1.8); Anion Gap 7.0 mmol/L (3-11); Aspartate Aminotrans (AST/SGOT 21.0 U/L (12-37); Bilirubin, Total 0.4 mg/dL (0.1-1.0); Blood Urea Nitrogen 24.0 mg/dL (8-24); CO2, Blood 29.0 mmol/L (21-32); Calcium, Blood 8.6 mg/dL (8.5-10.1); Chloride, Blood 106.0 mmol/L (98-108); Creatinine, Blood 1.37 mg/dL (0.40-1.00); Globulin, Blood 4.5 g/dL (2.2-4.0); Glucose, Blood 118.0 mg/dL (70-99); Potassium, Blood 2.9 mmol/L (3.5-5.5); Sodium, Blood 139.0 mmol/L (136-145); Total Protein, Blood 7.6 g/dL (6.4-8.2)
[2025-01-16 03:43] LABS: BASOPHILS ABSOLUTE AUTO 0.03 K/mm3 (0.00-0.23); BASOPHILS PERCENT AUTO 0 % (0-2); EOSINOPHILS ABSOLUTE AUTO 0.29 K/mm3 (0.00-0.68); EOSINOPHILS PERCENT AUTO 4 % (0-6); Hematocrit 36.8 % (33.0-51.0); Hemoglobin 12.0 g/dL (11.5-16.0); IMMATURE GRAN ABSOLUTE AUTO 0.01 K/mm3 (0.00-0.10); IMMATURE GRAN PERCENT AUTO 0 % (0-1); LYMPHOCYTES ABSOLUTE AUTO 2.62 K/mm3 (0.84-5.20); LYMPHOCYTES PERCENT AUTO 39 % (21-46); MONOCYTES ABSOLUTE AUTO 0.60 K/mm3 (0.16-1.47); MONOCYTES PERCENT AUTO 9 % (4-13); Mean Corpuscular HGB Conc 32.6 g/dL (31.5-36.5); Mean Corpuscular Volume 93 fL (80-100); NEUTROPHILS ABSOLUTE AUTO 3.25 K/mm3 (1.96-9.15); NEUTROPHILS PERCENT AUTO 48 % (41-73); NRBC ABSOLUTE 0.00 K/mm3 (0.00-0.02); NRBC Auto 0.0 /100 WBC (0.0-0.2); Platelet Count 274 K/mm3 (150-400); RDW Coefficient Variation 13.2 % (11.7-14.2); RDW Standard Deviation 44.8 fL (35.1-46.3)
[2025-01-16 04:24] VITALS: BP 108/44
== END 2025-01-16 05:54 | disposition home or self-care (01) ==
LOC: ER 01:48
PROVIDERS: Student in an Organized Health Care Education/Training Program
DX: J44.1 Chronic obstructive pulmonary disease with (acute) exacerbation (principal); I48.91 Unspecified atrial fibrillation; E78.5 Hyperlipidemia, unspecified; Z79.899 Other long term (current) drug therapy; Z79.82 Long term (current) use of aspirin; Z88.1 Allergy status to other antibiotic agents; Z88.2 Allergy status to sulfonamides; Z88.8 Allergy status to other drugs, medicaments and biological substances
CPT/HCPCS: 36415; 71045; 80053; 83735; 84484; 85025; 93005; 93010; 99285-25; A9270